=== PATIENT | male | born 1955 | race Caucasian/White ===

== ENCOUNTER → 2020-11-07 07:07 | Outpatient (CLI) | payer MEDICARE, SELFPAY ==
[2020-11-07 20:35] LABS: SARS-CoV-2 RNA PCR Negative
== END ==
PROVIDERS: PCP Nurse Practitioner Adult Health; Visit Provider Nurse Practitioner Adult Health
DX: J01.90 Acute sinusitis, unspecified (principal); Z20.822 Contact with and (suspected) exposure to COVID-19
CPT/HCPCS: C9803; U0003; U0005

== ENCOUNTER 2021-04-11 16:15 | Emergency (ER) | payer MEDICARE, SELFPAY ==
--- NOTE | ~2021-04-11 | CT_ITS ---
EXAMINATION: CT abdomen pelvis wo con DATE: 04/11/2021 17:51 INDICATION: Right-sided abdominal pain, history of diverticulitis TECHNIQUE: Computed tomography (CT) of the abdomen and pelvis was performed without intravenous contr ast. The dose-length product (DLP) was 1188.36 mGy-cm. Automated exposure control and iterative recon struction technique were employed. COMPARISON: 11/24/2018 FINDINGS: Minimal dependent atelectasis is present in the lung bases. The heart size is normal. Punct ate calcifications in an otherwise normal spleen likely represent healed granulomatous disease. There is a 3.6 cm cyst of the liver. The pancreas, gallbladder, and adrenal glands are normal. There is a 1.5 cm cyst of the left kidney. A 2 mm nonobstructing stone is present in the right kidney lower pole . Colonic diverticulosis is present without evidence of diverticulitis. There is a circumscribed area of fat attenuation right mid abdomen adjacent to the hepatic flexure of the colon with surrounding f at stranding. The appendix is normal. No pathologically enlarged abdominal or pelvic lymph nodes are identified. There is no free intraperitoneal gas or evidence of bowel obstruction. There is an umbili clarice hernia containing nonobstructed small bowel. Changes of posterior fusion procedure are noted from L4 through S1. There is vertebroplasty change and a burst fracture of the L2 vertebral body. Vertebr oplasty change is also seen at L4, L5, and S1. A neurostimulator device is implanted in the posterior subcutaneous tissues on the right with its leads coursing in the central spinal canal beyond the sup erior margin of the radiograph. IMPRESSION: 1. Findings consistent with epiploic appendagitis of the right abdomen. 2. Nonobstructing right nephrolithiasis. 3. Diverticulosis without evidence of diverticulitis. Reviewed, dictated and finalized at location A.
[2021-04-11 16:17] VITALS: BP 121/80; PULSE 114; RESP 16; TEMP 37.3; O2SAT 98
[2021-04-11 16:34] LABS: Basophils Absolute Auto 0.1 K/mm3 (0.0-0.1); Basophils Percent Auto 0.8 % (0.2-1.2); Eosinophils Absolute Auto 0.3 K/mm3 (0-0.3); Eosinophils Percent Auto 2.4 % (0-4.4); Hematocrit 45.3 % (42.0-52.0); Hemoglobin 15.1 g/dL (14.0-18.0); Immature Granulocyte Absolute 0.03 K/mm3 (0.00-0.031); Immature Granulocyte Percent A 0.3 % (0-0.5); Lymphocytes Absolute Auto 3.59 K/mm3 (0.9-3.2); Lymphocytes Percent Auto 31.7 % (18.3-44.2); Mean Corpuscular HGB Conc 33.3 g/dl (32-36); Mean Corpuscular Hemoglobin 31.1 pg (26-34); Mean Corpuscular Volume 93.4 fl (80-100); Mean Platelet Volume 11.7 fl (7.4-10.4); Monocytes Absolute Auto 1.1 K/mm3 (0.1-0.6); Monocytes Percent Auto 9.6 % (2.6-8.5); Neutrophils Absolute Auto 6.3 K/mm3 (1.3-6.7); Neutrophils Percent Auto 55.2 % (45.5-73.1); Platelet Count Result 164 k/mm3 (150-375); Red Blood Count 4.85 M/mm3 (4.6-6.20); Red Cell Distribution Width 13.5 % (11.5-14.5); White Blood Count 11.3 K/mm3 (4.5-10.0)
[2021-04-11 16:41] LABS: Add Urine Microscopic? YES; Appearance Urine Clear (Clear); Bacteria Urine Trace /hpf; Bilirubin Urine Negative (Negative); Blood Urine Negative (Negative); Color Urine Yellow (Yellow); Glucose Urine UA Negative (Negative); Ketones Urine Trace mg/dL (Negative); Leukocyte Esterase Ur Trace LEU/UL (Negative); Nitrate Urine Negative (Negative); Protein Urine Negative (Negative); RBC Urine 0-2 /hpf (0-2); Urobilinogen Urine Negative mg/dL (<2.0); WBC Urine 0-3 /hpf
[2021-04-11 16:55] LABS: Alanine Aminotransferase 45 U/L (4-50); Albumin Level 4.4 g/dL (3.5-5.1); Alkaline Phosphatase 44 U/L (38-126); Anion Gap 13 mmol/L (8-16); Aspartate Amino Transferase 44 U/L (17-59); Bilirubin,Total 0.7 mg/dL (0.2-1.3); Blood Urea Nitrogen 12 mg/dL (9-20); Calcium 9.7 mg/dL (8.4-10.2); Carbon Dioxide 21 mmol/L (22-30); Chloride 102 mmol/L (98-107); Estimated CRCL calculation 72 ml/min; Estimated Glomerular Filt Rate > 60; Glucose 93 mg/dL (65-110); Lipase 164 U/L (23-300); Potassium 4.2 mmol/L (3.4-5.0); Sodium 136 mmol/L (137-145)
[2021-04-11 16:56] VITALS: BP 123/91; PULSE 118; RESP 16; O2SAT 96
--- NOTE | 2021-04-11 17:14 | ED.GENADULT ---
HPI - General Adult General Chief complaint: Abdominal Pain Stated complaint: abd pain Time Seen by Provider: 04/11/21 16:37 Source: patient, RN notes reviewed and old records reviewed Mode of arrival: ambulatory Limitations: no limitations History of Present Illness HPI narrative: Patient 65-year-old male who presents with abdominal pain localized to the right lower quadrant began Friday as Called in some Cipro and Flagyl given history of diverticulitis that pain is typically on the left this pain presents on the right patient denies any fever chills nausea vomiting notes that the pain is only worsened has had some loose stools denies rectal bleeding melena URI symptoms or other complaints Related Data Allergies Allergy/AdvReac Type Severity Reaction Status Date / Time adhesive Allergy Severe cause Verified 01/26/17 15:45 blisters gabapentin Allergy Unknown Verified 08/25/18 10:55 iodine Allergy Unknown Verified 08/10/13 10:37 Contrast Media Allergy Severe DIFF Uncoded 01/26/17 15:45 BREATHING Review of Systems Review of Systems: All systems reviewed & are unremarkable except as noted in HPI and below PMFSH Past Medical History Medical History Diverticulitis Family History Family History (Updated 04/12/16 @ 23:19 by DOCTOR UNKNOWN) Father Hypertension Acute myocardial infarction Sibling Family history of psoriasis Family history of diabetes mellitus in first degree relative Family history of heart disease in male family member before age 55 Acute myocardial infarction Mother Cerebrovascular accident Other Diabetes mellitus Family history of cardiovascular disease Social History Social History (Updated 04/11/21 @ 17:15 by Matt De La Torre PA-C) Smoking status: Never smoker Alcohol intake: current Exam Narrative: GENERAL: Well-appearing, well-nourished, and in no acute distress. HEAD: Normocephalic, atraumatic. EYES: PERRLA and EOMI. ENT: Nares clear, no rhinorrhea or epistaxis. Mucous membranes moist. CHEST: Clear to auscultation. No respiratory distress. No wheezes rales or rhonchi HEART: Regular rate and rhythm. No murmur heard. Normal peripheral pulses. ABDOMEN: Soft, right lower quadrant tenderness to palpation with voluntary guarding, nondistended EXTREMITIES: Normal range of motion. No edema. SKIN: Warm, dry, no rash. NEURO: No focal deficits. Alert and oriented x3. PSYCH: Normal mood and affect. Course Course Emergency Course: Patient evaluated the emergency department for abdominal pain found to have epiploic appendagitis will be discharged home with outpatient follow-up afebrile nontoxic-appearing no distress hydrated medicated emergency department resting comfortably no distress felt appropriate for outpatient reevaluation ABCs and vital signs intact and stable Consultations Consultation #1: Primary care was made aware of the case findings Date: 04/11/21 Time: 19:13 Vital Signs Vital signs: Vital Signs Temperature 99.1 F 04/11/21 16:17 Pulse Rate 114 H 04/11/21 16:17 Respiratory Rate 16 04/11/21 16:17 Blood Pressure 121/80 04/11/21 16:17 Pulse Oximetry 98 04/11/21 16:17 Temperature 99.1 F 04/11/21 16:17 Pulse Rate 118 H 04/11/21 16:56 Respiratory Rate 16 04/11/21 16:56 Blood Pressure 123/91 H 04/11/21 16:56 Pulse Oximetry 96 04/11/21 16:56 Medical Decision Making MDM Narrative Medical decision making narrative: Diagnosis epiploic appendagitis felt appropriate for outpatient reevaluation nontoxic-appearing no emesis no rectal bleeding felt appropriate for outpatient reevaluation Vital Signs Vital Signs: Vital Signs Temperature 99.1 F 04/11/21 16:17 Pulse Rate 114 H 04/11/21 16:17 Respiratory Rate 16 04/11/21 16:17 Blood Pressure 121/80 04/11/21 16:17 Pulse Oximetry 98 04/11/21 16:17 Temperature 99.1 F 04/11/21 16:17 Pulse Rate 118 H
[2021-04-11] MEDS: SODIUM CHLORIDE 0.9% IV 1,000 ML 999 ML IV CONT (17:59)
[2021-04-11] MEDS: FAMOTIDINE 20 MG/2 ML VIAL IV PUSH (17:59)
== END 2021-04-11 19:50 | disposition home or self-care (01) ==
PROVIDERS: Emergency Provider Emergency Medicine; PCP Nurse Practitioner Adult Health
DX: Q43.8 Other specified congenital malformations of intestine (principal)
CPT/HCPCS: 36415; 74176; 80053; 81001; 83690; 85025; 96365; 96375; 99284; J0131; J7030

== ENCOUNTER → 2021-09-07 00:54 | Outpatient (CLI) | payer MEDICARE, SELFPAY ==
[2021-09-07 19:18] LABS: SARS-CoV-2 RNA PCR Negative
== END ==
PROVIDERS: PCP Nurse Practitioner Adult Health; Visit Provider Nurse Practitioner Adult Health
DX: J02.9 Acute pharyngitis, unspecified (principal); Z20.822 Contact with and (suspected) exposure to COVID-19
CPT/HCPCS: C9803; U0003; U0005

== ENCOUNTER → 2021-10-06 00:15 | Outpatient (CLI) | payer MEDICARE, SELFPAY ==
[2021-10-06 20:22] LABS: SARS-CoV-2 RNA PCR Negative
== END ==
PROVIDERS: PCP Nurse Practitioner Adult Health; Visit Provider Nurse Practitioner Adult Health
DX: R68.89 Other general symptoms and signs (principal); Z20.822 Contact with and (suspected) exposure to COVID-19
CPT/HCPCS: C9803; U0003; U0005

== ENCOUNTER 2024-03-30 12:43 | Outpatient (CLI) | payer MEDICARE, SELFPAY ==
--- NOTE | ~2024-03-30 | CT_ITS ---
Non-contrast CT scan of the Abdomen and Pelvis Clinical indication: Noninfected gastroenteritis/colitis Technique: 2.5 mm axial scans were obtained through the abdomen and pelvis without intravenous or or al contrast. Dose reduction technique was used on this scan by utilizing automated exposure control a nd iterative reconstruction technique. The dose-length product (DLP) was 1094.39 mGy-cm. COMPARISON: 04/11/2021 Findings: Images through the lung bases reveal calcified right basilar granulomas. There is no evidence of renal or ureteral calculi. The kidneys and the ureters are nondilated. Stable hepatic cyst noted. Small gallstones are present. The spleen, pancreas, and adrenals appear no rmal. There is no aortic aneurysm. There is no evidence of bowel obstruction. Umbilical hernia contains a focal loop of small bowel. The re is sigmoid diverticulosis, without definite acute inflammatory change. Images through the pelvis were performed. There is no evidence of ascites or lymphadenopathy. Urinary bladder unremarkable. No pelvic mass seen. There is extensive degenerative spondylosis of the lumbar spine with prior vertebroplasty of L2, lumbosacral spinal fixation, and neurostimulator device. Impression: Umbilical hernia which contains a focal loop of small bowel. No bowel obstruction or bowel wall thick ening. Sigmoid diverticulosis. No definite evidence for acute diverticulitis. Reviewed, dictated and finalized at [facility]. Impression: Umbilical hernia which contains a focal loop of small bowel. No bowel obstructi on or bowel wall thickening. Sigmoid diverticulosis. No definite evidence for acute diverticulitis.
== END 2024-03-30 12:44 ==
PROVIDERS: PCP Nurse Practitioner Adult Health; Visit Provider Nurse Practitioner Adult Health
DX: K52.9 Noninfective gastroenteritis and colitis, unspecified (principal); K42.9 Umbilical hernia without obstruction or gangrene; K57.30 Diverticulosis of large intestine without perforation or abscess without bleeding
CPT/HCPCS: 74176

== ENCOUNTER 2024-05-07 09:29 | Outpatient (CLI) | payer MEDICARE, SELFPAY ==
--- NOTE | 2024-05-07 09:37 | ECG_ITS ---
Test Date: 2024-05-07 09:56:08 Measurements Intervals Tracy Rate: 96 P: 41 TX: 155 QRS: 38 QRSD: 104 T: 24 QT: 351 QTc: 445 Interpretive Statements SINUS RHYTHM LOW QRS VOLTAGE IN LIMB LEADS BORDERLINE ECG WARNING: DATA QUALITY MAY AFFECT INTERPRETATION No previous ECG available for comparison Electronically Signed On 05-07-2024 12:56:17 CDT by Toni Khan M.D.
== END 2024-05-07 09:30 | disposition home or self-care (01) ==
PROVIDERS: PCP Nurse Practitioner Adult Health; Visit Provider Surgery
DX: K43.2 Incisional hernia without obstruction or gangrene (principal); I10 Essential (primary) hypertension; Z01.818 Encounter for other preprocedural examination
CPT/HCPCS: 36415; 86850; 86900; 86901; 93005

== ENCOUNTER 2024-05-11 02:22 | Day surgery (SDC) | payer MEDICARE, SELFPAY ==
--- NOTE | 2024-05-05 12:21 | PC.NURSE ---
Report to the Outpatient Waiting Room, entrance under the green pavilion located off [facility], at time __6:00 AM on date __05/11/24 . Planned Procedure Time: __7:30 AM . Time changes happen often and if your time is changed the preop area will call you the afternoon before. - You and your visitor will be asked to self-screen and do not enter if you have any COVID symptoms. - A mask is optional within the hospital at this time. Patients may have clear liquids (water, carbonated beverages, clear teas, apple juice) until 3 hours prior to surgery ( 4:30 AM)with a maximum of 20 ounces. - No food from midnight until time of surgery - Infants may have breast milk until 4 hours before surgery, infant formula 6 hours prior to surgery. - Children will be allowed to drink immediately following surgery. If applicable, please bring a bottle or sippy cup to assist with drinking. Juice, water, soda, and popsicles are readily available. For infants on formula, please bring formula the day of surgery. Pacifiers are allowed. Take the following medications with a SIP of water the morning of surgery: _BREO INHALER IF NEEDED DO NOT STOP ANY OF YOUR OTHER PRESCRIPTION MEDICATIONS PRIOR TO SURGERY ?EXCEPT THE FOLLOWING Medications to discontinue per physician __ASPIRIN 325 MG DECREASE TO 81 MG ONE WK PRIOR TO SURGERY PER DR CLIFFORD. HOLD ALL VITAMINS AND SUPPLEMENTS 3 DAYS PRE OP.LAST DOSE 05/07/24 Please no make-up, nail georgian, hairspray, perfume, deodorant, or body powder the day of surgery. No jewelry (including any body piercings) or valuables the day of surgery, leave them at home. Please take a shower or bath the night before, or the morning of, surgery with an antibacterial soap. Wear comfortable, loose fitting clothing. Children are encouraged to wear pajamas. - Jewelry must be removed prior to entering the operating room. Rings and piercings that are not removed may be cut off. - The hospital will not accept responsibility for valuables. - Please leave all valuables, including medications, at home the day of surgery. If you are going home after surgery, a licensed commercial relief driver must drive you home. - NO public transportation without another adult if you receive anesthesia. - We recommend that an adult stay with you for 24 hours following discharge. - We also recommend that you do not drive, make important decision, drink alcoholic beverages, or take any drugs that were not prescribed by your health care provider for at least 24 hours after your discharge time. Follow any additional instructions given to you from your surgeon. If you or anyone in your household have experienced Covid symptoms in the past week, please notify your surgeon or the nurse liaison at the phone number below for possible testing. Telephone instructions given to __PATIENT and asked if any additional questions and then verbalized understanding. Patient advised to call surgeon office or pre surgery nurse liaison [phone] if any additional questions.
[2024-05-05 12:32] VITALS: BMI 36.6
[2024-05-11] VITALS (8 sets, daily range): BP systolic 104–133; BP diastolic 59–84; PULSE 83–100; RESP 14–18; TEMP 36.6; O2SAT 92–100
--- NOTE | 2024-05-11 06:58 | WPDANESEPPF ---
Anes - Initial Pre Proc Eval Procedure: Operation Date: 05/11/24 07:30 Proposed Procedures p Laparoscopic Recurrent Incisional Hernia Repair with Mesh Davinci Assisted, Removal Of Old Mesh - Diogenes Collado DO Date/Time: 05/11/24 06:58 Surgeon: Diogenes Collado DO Pre Op Diagnosis: recurrent Incisional Hernia (5cm) Patient Data Age: 68 Gender: M Height: 1.65 m Weight: 99.8 kg Allergies Allergy/AdvReac Type Severity Reaction Status Date / Time adhesive Allergy Severe cause Verified 05/05/24 11:50 blisters gabapentin Allergy Unknown Hives AND Verified 05/05/24 11:50 ITCHING iodine Allergy Unknown Difficulty Verified 05/05/24 11:50 Breathing amoxicillin [From Augmentin] AdvReac Other Verified 05/05/24 11:53 clavulanic acid AdvReac Other Verified 05/05/24 11:53 [From Augmentin] Contrast Media Allergy Severe DIFF Uncoded 05/05/24 11:50 BREATHING Home Medications Medication Instructions Recorded Confirmed Type aspirin 325 mg tablet 325 mg PO HS 06/09/23 05/05/24 History cetirizine 5 mg chewable tablet 5 mg PO DAILY Allergy Symptoms 06/09/23 05/05/24 History fluticasone furoate 200 1 inh inhalation Q24H 06/09/23 05/05/24 History mcg-vilanterol 25 mcg/dose inhalation powder (Breo Ellipta) fluticasone propionate 50 2 spray intranasal DAILY #3 units 06/09/23 05/05/24 Rx mcg/actuation nasal spray,suspension latanoprost 0.005 % eye drops 1 drp EACH EYE QPM 06/09/23 05/05/24 History potassium gluconate 550 mg (90 mg) 550 mg PO BID LEG CRAMPS 06/09/23 05/05/24 History tablet albuterol sulfate 90 mcg/actuation 2 inh inhalation Q4H PRN shortness 11/10/23 05/05/24 Rx aerosol inhaler (Ventolin HFA) of breath or wheezing #8.5 grams alendronate 70 mg tablet 70 mg PO WEEKLY #12 tabs 11/13/23 05/05/24 Rx ascorbic acid (vitamin C) 1,000 mg 1 g PO DAILY 05/05/24 05/05/24 History tablet atorvastatin 10 mg tablet 10 mg PO HS 05/05/24 05/05/24 History cholecalciferol (vitamin D3) 125 125 mcg PO DAILY 05/05/24 05/05/24 History mcg (5,000 unit) tablet folic acid 400 mcg tablet 0.4 mg PO HS 05/05/24 05/05/24 History lisinopril 10 mg tablet 10 mg PO HS 05/05/24 05/05/24 History vitamin B complex 1 cap PO DAILY 05/05/24 05/05/24 History Patient hx anesthesia problems: none Family hx anesthesia problems: none Results Review: All pre-operative results and documents have been reviewed as part of the pre-operative evaluation. [facility] Past Medical History Medical History Allergies Asthma Diverticulitis Surgical History Surgical History H/O hemorrhoidectomy Hx of ventral hernia repair 2012 Family History Family History Father Hypertension Acute myocardial infarction Sibling Family history of psoriasis Family history of diabetes mellitus in first degree relative Family history of heart disease in male family member before age 55 Acute myocardial infarction Mother Cerebrovascular accident Other Diabetes mellitus Family history of cardiovascular disease Social History Social History Smoking packs per day: 0.5 Smoking cigarettes per day: 10.0 Years smoked: 1.5 Smoking pack-years: 0.75 Smoking status: Former smoker Tobacco type: cigarettes Smoking end date: 09/15/74 Alcohol intake: current Alcohol use details: once a month Lack of Transportation: No Lack of Food: Never True Current Housing: I Have Housing Concerned About Future Housing: No Difficulty Paying Gas/Electric Bills: No Difficulty Paying for Meds: No Currently Unemployed: No Education: Trade/Vocational Certificate Difficulty w/ Childcare or Family Care: No Living arrangements: with family Gender identity (if ve
[2024-05-11] MEDS: LACTATED RINGERS 1,000 ML 30 ML IV CONT ×2 (07:00→10:16)
[2024-05-11] MEDS: KETOROLAC 15 MG/ML VIAL (*BKC) IV PUSH (07:00)
[2024-05-11] MEDS: ACETAMINOPHEN 500 MG TABLET 1000 MG PO (07:00)
--- NOTE | 2024-05-11 07:14 | WPDHPUPDATE1 ---
History and Physical Update Update Date/Time: 05/11/24 07:14 History and Physical has been reviewed, including an updated exam of the patient. There are NO changes in the patient's condition. Risks, benefits, and alternatives have been discussed and questions answered. Patient agrees to proceed with procedure.
[2024-05-11] MEDS: ceFAZolin 2 GM/D5W 50 ML 2 GM/50 ML BAG IVPB (07:20)
[2024-05-11] MEDS: BUPIVACAINE/EPINEPHRINE 0.5% 50 ML VIAL 30 ML INFILTRATE (08:16)
--- NOTE | 2024-05-11 10:08 | W.PM.PROC2 ---
Procedure Note - Detailed Date of Procedure 05/11/24 Pre-op Diagnosis recurrent Incisional Hernia Post-op Diagnosis Same (5 cm recurrent incisional hernia) Procedure Performed Laparoscopic 5 cm recurrent incisional hernia repair with mesh, da Taylor assisted Surgeon Diogenes Collado, DO Anesthesia General and Local (0.5% bupivacaine with epinephrine) Indications This is a 68-year-old man who presented with a recurrent incisional hernia. He has a history of incisional hernia repair many years ago followed by a recurrent incisional hernia repair with mesh in 2012. About 1 year after that he did begin noticing a recurrent bulge. A CT was recently performed which showed evidence of a recurrent hernia in the periumbilical region. Discussions were made with the patient about treatment options and decision was made to proceed with robotic assisted laparoscopic recurrent incisional hernia repair with mesh and possible removal of old mesh. Findings Robotic assisted laparoscopic recurrent incisional hernia repair was performed. The patient had about a 5 cm recurrent incisional hernia in the periumbilical region. There was evidence of a previous 4 cm mesh protruding up within the hernia defect. This mesh was well incorporated into the peritoneum. A robotic transabdominal preperitoneal approach was utilized for repair. A wide preperitoneal pocket was created and the mesh and hernia sac were reduced from within the hernia defect. The hernia defect measured 5 cm wide. The fascia was reapproximated using 1 Stratafix running absorbable suture. I then placed a Bard soft mesh 15 cm x 15 cm within the preperitoneal pocket and secured it to the abdominal wall. The peritoneum was then closed over the mesh. No specimens were obtained for pathology, and I chose to leave the old mesh in place since it was well incorporated into the peritoneum. Description of Procedure Procedure as well as risks, benefits, and alternatives were discussed with the patient. Written consent was obtained and placed in chart prior to procedure. Patient was brought back to surgical suite. He was placed supine on operating table. Time-out was done to confirm patient and procedure. He was then intubated by the anesthesia department. A bump was placed under his left hip, and the bed was flexed slightly to extend the space between his costal margin and iliac crest. His abdomen was prepped and draped in sterile fashion using chlorhexidine prep. A 5 millimeter incision was made in the left upper quadrant, and a 5 millimeter Optiview trocar was advanced through the abdominal layers under direct visualization. Once inside the abdominal cavity, carbon dioxide insufflation was used to create a pneumoperitoneum. His abdomen was inspected. An 8 millimeter incision was made in the left lower quadrant, and an 8 millimeter robotic trocar was placed under direct visualization. Another 8 millimeter incision was made in the left lateral abdomen, and an 8 millimeter robotic trocar was placed under direct visualization. 0.5% bupivacaine with epinephrine was infiltrated around each port site. The 5 millimeter port was removed, and an 8 mm robotic trocar was placed under direct visualization. The robotic arms were brought up to the patient's bedside and secured to the ports. The camera and instruments were inserted, and I then moved over to the robotic console and took control of the camera and instruments. After careful thorough inspection of the abdominal cavity, I began my dissection at the hernia. I began a preperitoneal plane within the left upper quadrant using scissors with electrocautery. This preperitoneal plane was then developed along the left lateral abdomen into the left lower quadrant. Plane was then continued medially until I encountered the hernia defect. The hernia sac and mesh were reduced from the hernia defect using scissors with electrocautery. I then continued the preperitoneal dissection
== END 2024-05-11 12:10 | disposition home or self-care (01) ==
PROVIDERS: PCP Nurse Practitioner Adult Health; Visit Provider Surgery
PROC: (CPT 49615; principal; 2024-05-11 07:30)
DX: K43.2 Incisional hernia without obstruction or gangrene (principal); J45.909 Unspecified asthma, uncomplicated; K57.32 Diverticulitis of large intestine without perforation or abscess without bleeding
CPT/HCPCS: 49615; 36415; 86850; 86900; 86901; 93005; A9270; C1781; J0690; J1100; J1885; J2250; J2371; J2405; J2704; J3010; J7030; J7120